=== PATIENT | female | born 1980 | race African-American/Black ===

== ENCOUNTER 2023-03-11 17:49 | Emergency (ER) | payer MEDICAID ==
[~2023-03-11] VITALS: Ht 172.7 cm; Wt 86.0 kg
[2023-03-11 17:52] VITALS: BP 109/70; O2SAT 100
[2023-03-11 23:02] VITALS: PULSE 73; RESP 16; TEMP 98.1
== END 2023-03-11 23:04 | disposition home or self-care (01) ==
LOC: ER 17:49
DX: R58 Hemorrhage, not elsewhere classified (principal); R07.89 Other chest pain; V49.59XA Passenger injured in collision with other motor vehicles in traffic accident, initial encounter; Y93.89 Activity, other specified; Y92.89 Other specified places as the place of occurrence of the external cause; Y99.8 Other external cause status
CPT/HCPCS: 71046; 81025; 99283